=== PATIENT | female | born 1990 | race Caucasian/White ===

== ENCOUNTER 2023-04-14 06:17 | Day surgery (SDC) | payer OTHER, SELFPAY ==
[2023-04-14] VITALS (10 sets, daily range): BP systolic 113–139; BP diastolic 62–103
[2023-04-14] MEDS: CELEBREX 200 MG PO (07:32)
[2023-04-14] MEDS: TYLENOL 1000 MG PO (07:32)
[2023-04-14] MEDS: NORMOSOL-R 1000 IV (07:32)
[2023-04-14] MEDS: DILAUDID 0.5 MG IV ×3 (10:28→11:07)
[2023-04-14] MEDS: ZOFRAN 4 MG IV (10:51)
[2023-04-14] MEDS: ROXICODONE 5 MG PO (12:11)
== END 2023-04-14 12:30 | disposition home or self-care (01) ==
LOC: SDS 06:17
PROVIDERS: ATTENDING PHYSICIAN Specialist; FAMILY PHYSICIAN Nurse Practitioner Family
DX: M25.312 Other instability, left shoulder (principal); M75.42 Impingement syndrome of left shoulder
CPT/HCPCS: 29806; C1713

== ENCOUNTER 2023-08-03 13:43 | Emergency (ER) | payer OTHER, SELFPAY ==
[2023-08-03 13:46] VITALS: BP 154/109
[2023-08-03 14:00] LABS: % Basophils 0.4 % (0-2); % Eosinophils 6.6 % (0-6); % Immature Granulocytes 0.3 % (0-0.5); % Lymphocytes 25.9 % (20.5-51.1); % Monocytes 5.2 % (1.7-9.3); % Neutrophils 61.6 % (42.2-75.2); Absolute Basophils 0.1 10^3/uL (0-0.2); Absolute Eosinophils 0.8 10^3/uL (0-0.7); Absolute Lymphocytes 3.2 10^3/uL (1.2-3.4); Absolute Monocytes 0.7 10^3/uL (0.1-0.6); Absolute Neutrophils 7.7 10^3/uL (1.4-6.5); Hematocrit 37.2 % (37.0-47.0); Hemoglobin 13.1 g/dL (12.0-16.0); Mean Corp Hgb Conc. 35.2 g/dL (33.0-37.0); Mean Corpuscular Hgb 28.4 pg (27.0-31.0); Mean Corpuscular Volume 80.5 fL (81.0-99.0); Mean Platelet Volume 9.5 fL (7.4-10.4); Nucleated Red Blood Cells % 0 %; Platelet Count 348 10^3/uL (130-400); Red Blood Cell Count 4.62 10^6/uL (4.20-5.40); Red Cell Dist. Width 13.2 % (11.5-14.5); White Blood Cell Count 12.5 10^3/uL (4.8-10.8)
[2023-08-03 14:13] LABS: ALT (SGPT) 30 U/L (0-35); AST (SGOT) 29 U/L (14-36); Albumin 4.8 g/dl (3.5-5.0); Alkaline Phosphatase 94 U/L (38-126); Blood Urea Nitrogen 11 mg/dl (7-17); Calcium 10.8 mg/dl (8.4-10.2); Carbon Dioxide 25 mmol/L (22-30); Chloride 103 mmol/L (98-107); Glucose 105 mg/dl (70-99); Lipase 65 U/L (23-300); Potassium 3.9 mmol/L (3.5-5.1); Sodium 139 mmol/L (135-145); Total Bilirubin 0.7 mg/dl (0.2-1.3); Total Protein 8.3 g/dl (6.3-8.2); eGFR > 60.00
--- NOTE | 2023-08-03 16:06 | ED.GENMED ---
History of Present Illness
General
Chief Complaint: Abdominal Pain
Source: patient
Time Seen by Provider: 08/03/23 15:53
History of Present Illness
History of Present Illness:
33-year-old female presents to the emergency room complaining of abdominal pain. Subjectively the pain feels diffuse. It began more mild pain 3 days ago and has increased in intensity. She has had nausea and vomiting with the last episode of
vomiting this morning. Patient has had loose stool but not quite watery diarrhea. Pain feels worse when she is lying flat. Patient has taken Bentyl, Tylenol, Aleve without improvement. Patient has not had any previous abdominal surgeries. She
denies any recent travel. She did have surgery about 1 month ago on her left shoulder but was not on any postoperative antibiotics. Patient is a emergency room nurse at another hospital and states that her stool does not resemble C. difficile in
her opinion.
Past History
Past History
ED Past Medical History: Asthma and Other (Depression/anxiety)
ED Past Surgical History: Orthopedic (04/2020 L shoulder arthroscopy)
Social History
Tobacco: Smoker ('socially')
Alcohol: Occasional
Personal:
Living: with family
Employment: Employed (student)
Phy Exam
Physical Exam
Physical Exam:
General: Awake, Alert, Oriented X3. No acute distress.
Vitals: unremarkable
Head: Atraumatic
Eyes: Pupils equal, EOMI
Throat: Airway intact, no exudates
Neck: Trachea midline
Lungs: Clear and equal b/l
Heart: Regular rate, no murmurs
Abd: Soft, mild tenderness diffusely but significant tenderness right mid to lower abdomen, No pulsatile mass
Neuro: Nonfocal
Skin: Warm, dry, no rash
Extremities: pulses equal b/l, no edema
Course
Orders/Labs/Results
Orders:
Orders
08/03/23 13:52
Complete Blood Count/With Diff Urgent
Comprehensive Metabolic Panel Urgent
Lipase Urgent
08/03/23 16:03
0.9% Sodium Chloride 1000 ml [Nss] 1,000 ml IV BOLUS
HYDROmorphone [Dilaudid] 0.5 mg IV NOW STA
Ondansetron Injectable [Zofran] 4 mg IV NOW STA
08/03/23 16:04
CT Abd/pelvis W Iv Cont Urgent
Comment:
Reason For Exam: abd pain, RLQ most tender
08/03/23 16:05
Electrocardiogram (*1) Urgent
Reason for Study: QTc Monitoring
EKG- Treatment ONCE
08/03/23 16:45
Urinalysis Reflex To Culture Urgent
Date Specimen was Collected: 08/03/23
Time Specimen was Collected: 16:41
Urine Microscopic Reflex Cult Urgent
08/03/23 17:49
HYDROmorphone [Dilaudid] 0.5 mg .ROUTE .STK-MED ONE
08/03/23 17:51
HYDROmorphone [Dilaudid] 0.5 mg IV NOW STA
08/03/23 19:51
Ondansetron Injectable [Zofran] 4 mg .ROUTE .STK-MED ONE
08/03/23 19:52
HYDROmorphone [Dilaudid] 0.5 mg .ROUTE .STK-MED ONE
08/03/23 19:54
Ondansetron Injectable [Zofran] 4 mg IV NOW STA
08/03/23 19:55
HYDROmorphone [Dilaudid] 0.5 mg IV NOW STA
Abnormal Lab Results
08/03/23 08/03/23
13:52 16:45
WBC 12.5 H 10^3/uL
(4.8-10.8)
MCV 80.5 L fL
(81.0-99.0)
Absolute Neuts (auto) 7.7 H 10^3/uL
(1.4-6.5)
Absolute Monos (auto) 0.7 H 10^3/uL
(0.1-0.6)
Absolute Eos (auto) 0.8 H 10^3/uL
(0-0.7)
Eosinophils % 6.6 H %
(0-6)
Glucose 105 H mg/dl
(70-99)
Calcium 10.8 H mg/dl
(8.4-10.2)
Total Protein 8.3 H g/dl
(6.3-8.2)
Urine Ketones 1+ A
(Negative)
Urine Bilirubin 1+ A
(Negative)
Leukocyte Esterase Rfl Trace A
(Negative)
08/03/23 13:52
08/03/23 13:52
Vital Signs
Initial and Last Documented VS:
Initial Vital Signs
Temp Pulse Resp BP Pulse Ox
98.9 F 68 18 154/109 99
08/03/23 13:46 08/03/23 13:46 08/03/23 13:46 08/03/23 13:46 08/03/23 13:46
Last Documented Vital Signs
Temp Pulse Resp BP Pulse Ox
98.9 F 65 18 126/65 97
08/03/23 13:46 08/03/23 16:50 08/03/23 13:46 08/03/23 20:50 08/03/23 20:50
MDM/Problems Addressed
Differential Diagnosis Includes:
Appendicitis, colitis, ruptured ovarian cyst, cholecystitis
MDM/Problems Addressed:
Patient's labs show very minimal elevation white blood cell count. EKG obtained to check her QTc which is normal. Her chemistries are unremarkable as are her hepatic profile. Urinalysis shows no evidence for infection. CT of the abdomen pelvis
with IV contrast shows no abnormalities. No emergent reason identified for abdominal pain. Patient stable for discharge home. Will prescribe a short course of analgesia and antiemetics.
*Radiology
Radiology exam reviewed: radiology read reviewed
*Pulse Oximetry
Patient hypoxic: no
*EKG
Interpretation: normal
Heart Rate: 52
Rate: bradycardiac
Rhythm: sinus
[place]: normal axis
Interval: normal interval
QRS Pattern: normal QRS
Ischemia: no ischemia
*Staff Electronic Warfare Officer Interpretation
Rate: normal
Interpretation: normal
Heart Rate: 52
Rhythm: sinus
*Critical Care Note
Total Time (30-74mins, 75-104mins- exclusive of procedures): Not Applicable
ED Attending Note
-
Portions of this chart may have been created with voice recognition software.� Occasional wrong word or��sound alike� substitutions may have occurred due to the inherent limitations of voice recognition software.
Discharge Plan
Departure
Patient Disposition: Home (Routine Discharge)
Date of Disposition: 08/03/23
Time of Disposition: 19:49
Patient with high blood pressure during this ER visit?: No
Condition: Good
Discharge Problem:
Abdominal pain
Instructions: Abdominal Pain
Prescriptions:
New
ondansetron 4 mg tablet,disintegrating
4 mg PO TID PRN (Reason: nausea and vomiting) Qty: 10 0RF
oxycodone 5 mg tablet
5 mg PO Q6H PRN (Reason: Pain) Qty: 6 0RF
No Action
cetirizine 10 MG tablet
10 mg PO DAILY
multivitamin 1 EACH tablet
1 ea PO DAILY
cyclobenzaprine 10 MG tablet
10 mg PO PRN PRN (Reason: spasms)
meloxicam [Mobic] 15 MG tablet
15 mg PO DAILY
omeprazole 20 MG capsule,delayed release(DR/EC)
20 mg PO DAILY
ibuprofen 600 MG tablet
600 mg PO Q6HPRN PRN (Reason: pain) Qty: 30 0RF
tramadol 50 mg Tablet
50 mg PO PRN PRN (Reason: pain)
alprazolam 0.5 mg Tablet
0.5 mg PO PRN PRN (Reason: anxiety)
labetalol 100 mg Tablet
100 mg PO BID
escitalopram oxalate [Lexapro] 20 mg Tablet
20 mg PO DAILY
Referrals:
Jamison Saucedo CRNP [Family Provider] -
Interventions
Interventions:
*Risk Screen - Suicide Last Done: 08/03/23 13:46
*General Assessment Last Done: 08/03/23 13:46
*Neglect/Abuse Screening Last Done: 08/03/23 13:46
*ED COVID-19 Vaccine History Last Done: 08/03/23 13:46
*Nursing Disposition Last Done: 08/03/23 20:55
CL-Omvnva-Xgomoepvhn Assessment Last Done: 08/03/23 16:50
Discharge Date and Time
Discharge Date/Time: 08/03/23 20:55
Print Language: TURKISH
[2023-08-03] MEDS: NSS 1000 IV (16:48)
[2023-08-03] MEDS: DILAUDID 0.5 MG IV ×3 (16:48→19:55)
[2023-08-03] MEDS: ZOFRAN 4 MG IV ×2 (16:48→19:57)
[2023-08-03 16:50] VITALS: BP 141/80
[2023-08-03 16:55] LABS: Urine Albumin Trace (Neg - Trace); Urine Bilirubin 1+ (Negative); Urine Character Clear (Clear); Urine Color Yellow; Urine Glucose Negative (Negative); Urine Ketone 1+ (Negative); Urine Leukocyte Trace (Negative); Urine Nitrite Negative (Negative); Urine Occult Blood Negative (Negative); Urine Specific Gravity 1.025 (<1.030); Urine Urobilinogen Negative (Neg - 1+)
[2023-08-03 17:09] LABS: Urine Calcium Oxalate Crystals Present
[2023-08-03 17:13] LABS: Urine Red Blood Cell 0-2 /HPF (0-2); Urine White Cell 0-2 /HPF (0-5)
[2023-08-03 18:42] VITALS: BP 132/79
[2023-08-03 20:50] VITALS: BP 126/65
== END 2023-08-03 20:55 | disposition home or self-care (01) ==
LOC: EMR 13:43
PROVIDERS: Emergency Medicine; EMERGENCY PHYSICIAN Emergency Medicine; FAMILY PHYSICIAN Nurse Practitioner Family
DX: R10.31 Right lower quadrant pain (principal); R11.2 Nausea with vomiting, unspecified; R82.4 Acetonuria; J45.909 Unspecified asthma, uncomplicated; F41.8 Other specified anxiety disorders; F17.200 Nicotine dependence, unspecified, uncomplicated
CPT/HCPCS: 99284; 96374; 96375; 96376; 96361; 74177; 80053; 81003; 81015; 83690; 85025; 93005; Q9967

== ENCOUNTER → 2024-02-21 13:51 | Outpatient (REF) | payer OTHER, SELFPAY | LOC: EMG 13:51 | PROVIDERS: ATTENDING PHYSICIAN Specialist; FAMILY PHYSICIAN Nurse Practitioner Family | DX: R20.2 Paresthesia of skin (principal); R20.0 Anesthesia of skin | CPT/HCPCS: 95886; 95909 ==

== ENCOUNTER → 2024-04-01 18:32 | Outpatient (REF) | payer OTHER, SELFPAY | LOC: MRI 18:32 | PROVIDERS: ATTENDING PHYSICIAN Specialist; FAMILY PHYSICIAN Nurse Practitioner Family | DX: M25.512 Pain in left shoulder (principal); M54.12 Radiculopathy, cervical region | CPT/HCPCS: 71550 ==

== ENCOUNTER → 2024-10-08 08:40 | Outpatient (REF) | payer OTHER, SELFPAY ==
[2024-10-08 12:17] LABS: Hematocrit 34.0 % (37.0-47.0); Hemoglobin 11.7 g/dL (12.0-16.0); Mean Corp Hgb Conc. 34.4 g/dL (33.0-37.0); Mean Corpuscular Volume 86.7 fL (81.0-99.0); Nucleated Red Blood Cells % 0 %; Platelet Count 225 10^3/uL (130-400); Red Cell Dist. Width 12.3 % (11.5-14.5)
[2024-10-08 12:33] LABS: Blood Urea Nitrogen 13 mg/dl (7-17); Calcium 10.0 mg/dl (8.4-10.2); Carbon Dioxide 25 mmol/L (22-30); Chloride 108 mmol/L (98-107); Glucose 92 mg/dl (70-99); Potassium 4.3 mmol/L (3.5-5.1); Sodium 140 mmol/L (135-145); eGFR > 60.00
== END ==
LOC: HWLAB 08:40
PROVIDERS: ATTENDING PHYSICIAN Neurological Surgery; FAMILY PHYSICIAN Nurse Practitioner Family
DX: M54.2 Cervicalgia (principal)
CPT/HCPCS: 36415; 80048; 85025

== ENCOUNTER → 2024-12-11 12:35 | Outpatient (REF) | payer OTHER, BC, SELFPAY | LOC: HWRAD 12:35 | PROVIDERS: ATTENDING PHYSICIAN Nurse Practitioner | DX: M54.2 Cervicalgia (principal); M54.12 Radiculopathy, cervical region | CPT/HCPCS: 72050 ==